=== PATIENT | male | born 1975 | race Caucasian/White ===

== ENCOUNTER 2022-06-09 19:40 | Emergency (ER) | payer MEDICAID, SELFPAY ==
[2022-06-09 19:50] VITALS: BP 127/89; PULSE 88; RESP 18; TEMP 36.8; O2SAT 97; BMI 29.0
--- NOTE | 2022-06-09 19:56 | DI.RAD.S_ITS ---
PROCEDURE: XR CHEST 1V INDICATIONS: chest pain TECHNIQUE: One view of the chest was acquired. COMPARISON: None. FINDINGS: Surgical changes and devices: None. Lungs and pleura: Lungs are clear. No pleural effusions or pneumothorax. Mediastinum: Mediastinal contours appear normal. Heart size is normal. Bones and chest wall: No suspicious bony lesions. Overlying soft tissues appear unremarkable. IMPRESSION: 1. No acute cardiopulmonary disease. Dictated by: Jeramy Mae M.D. on 06/09/2022 at 20:48 Approved by: Jeramy Mae M.D. on 06/09/2022 at 20:48
[2022-06-09 20:20] LABS: Add Manual Diff / Slide Review NO; Basophils Absolute Auto 100 /uL (0-100); Basophils Percent Auto 0.8 % (0-2); Eosinophils Absolute Auto 100 /uL (0-450); Eosinophils Percent Auto 1.4 % (2-4); Hematocrit 49.5 % (41-53); Hemoglobin 16.8 g/dL (13.5-17.5); Lymphocytes Absolute Auto 3000 /uL (1100-4500); Lymphocytes Percent Auto 29.6 % (25-40); Mean Corpuscular HGB Conc 33.9 % (30-36); Mean Corpuscular Hemoglobin 31.2 PG (26-34); Mean Corpuscular Volume 91.9 fL (80-100); Monocytes Absolute Auto 1000 /uL (0-900); Monocytes Percent Auto 9.3 % (3-14); Neutrophils Absolute Auto 6000 /uL (1500-7000); Neutrophils Percent Auto 58.9 % (50-75); Platelet Count 196 X10^3/uL (150-400); Red Blood Cell Count 5.38 X10^6/uL (4.5-5.9); Red Cell Distribution Width 13.3 % (11.6-14.8); White Blood Cell Count 10.3 X10^3/uL (4.5-11.0)
[2022-06-09 20:26] LABS: INR 1.1 (0.9-1.3); Prothrombin Time 12.2 SECONDS (10.1-12.7)
[2022-06-09 20:29] LABS: PTT Partial Thromboplastin Tim 31 SECONDS (26-36)
[2022-06-09 20:32] LABS: Alanine Aminotransferase 34 IU/L (<50); Alkaline Phosphatase 87 U/L (38-126); Aspartate Aminotransferase 35 IU/L (17-59); BUN Creatinine Ratio 13.6 (6-22); Bilirubin Total 0.6 mg/dL (0.2-1.3); Blood Urea Nitrogen 11 mg/dL (9-20); Carbon Dioxide 24 mmol/L (22-32); Chloride 105 mmol/L (98-107); Creatine Kinase 99 U/L (55-170); Estimated Glomerular Filt Rate > 60 mL/min (>60); Glucose 94 mg/dL (70-100); Lipase 106 U/L (23-300); Potassium 4.2 mmol/L (3.4-5.1); Sodium 140 mmol/L (137-145); Total Protein 7.9 g/dL (6.3-8.2)
[2022-06-09 20:42] LABS: Troponin I < 0.012 ng/mL (0.01-0.034)
[2022-06-09 21:36] VITALS: BP 148/85; PULSE 72; RESP 16; O2SAT 99
[2022-06-09 22:43] LABS: Troponin I < 0.012 ng/mL (0.01-0.034)
--- NOTE | 2022-06-10 01:39 | ED.CHESTPAIN ---
HPI - Chest Pain General Chief Complaint: Chest Pain Stated Complaint: chest pain all day, SOB Time Seen by Provider: 06/10/22 01:15 Source: patient Mode of arrival: Ambulatory Limitations: no limitations History of Present Illness HPI narrative: 46-year-old gentleman no significant medical history on no prescription medications but a strong family history for coronary disease comes in this evening complaining of central chest pain. He does do construction work and heavy labor and yesterday had strained his back a bit noticed that is pain was radiating up his back into his neck and today as he was getting ready for bed as he went to sit forward he noticed increasing substernal chest pain. His girlfriend requested the come to the emergency department for further evaluation. Notes that he has not been feeling shortness of breath, orthopnea, fevers, chills, palpitations, chest pain prior to this evening. It was not associated with nausea, diaphoresis. He is had no abdominal pain no lower extremity edema and no recent viral infections. Related Data Allergies Allergy/AdvReac Type Severity Reaction Status Date / Time No Known Drug Allergies Allergy Verified 06/09/22 21:41 Review of Systems Review of Systems Narrative: Remainder of complete review of systems is otherwise unremarkable except for that included in the HPI. Patient History Social History Smoking Status: Current every day smoker Smoking Status: Current every day smoker tobacco type: cigarettes Substance Use Type: does not use Exam Initial Vital Signs Initial Vital Signs: Vital Signs Temperature 98.3 F 06/09/22 19:50 Pulse Rate 88 06/09/22 19:50 Respiratory Rate 18 06/09/22 19:50 Blood Pressure 127/89 06/09/22 19:50 Pulse Oximetry 97 06/09/22 19:50 Oxygen Delivery Method 06/09/22 19:50 General: Healthy appearing, in no acute distress. Able to give a complete and coherent history. Well-nourished well-developed HEENT: Moist mucous membranes, normal sclera with reactive pupils, Neck: No JVD, supple Respiratory: Lungs are clear to auscultation, no wheezing no rales no rhonchi. Full and symmetrical air movement Chest: Reproducible pain with pressure along the costochondral margins Cardiac: Regular rate and rhythm no murmurs no bruits Abdomen: Soft, nontender, good bowel tones, no flank pain Skin: Warm and dry, no rashes Neurologic: Grossly neurologically intact with no obvious asymmetries or abnormalities Extremities: No trauma, well perfused Psych: Cooperative, appropriate insight and affect Course Orders Ordered: ED Orders 06/09/22 19:56 XR chest 1V Stat COVID19 -Nasal RAPID/Pre-Proc Stat EKG-12 Lead Stat 06/09/22 20:09 Complete Blood Count AUTO DIFF Stat Comprehensive Metabolic Panel Stat Lipase Stat Magnesium Stat Partial Thromboplastin Time Stat Prothrombin Time INR Stat Troponin & CK Cardiac Panel Stat 06/09/22 22:13 Troponin I Stat 06/09/22 22:15 EKG-12 Lead Stat Discontinued Medications Aspirin (Aspirin 81 Mg Chew Tab) 324 mg PO NOW ONE Stop: 06/09/22 19:57 Vital Signs Vital signs: Vital Signs - 8 hr 06/09/22 19:50 06/09/22 21:36 Temperature 98.3 F Pulse Rate 88 72 Respiratory Rate 18 16 Blood Pressure 127/89 148/85 H Pulse Oximetry 97 99 Oxygen Delivery Method Room Air Room Air MDM - Chest Pain Lab Data Result diagrams: 06/09/22 20:09 06/09/22 20:09 Labs: Lab Results 06/09/22 06/09/22 06/09/22 Range/Units 20:09 20:09 20:09 WBC 10.3 (4.5-11.0) X10^3/uL RBC 5.38 (4.5-5.9) X10^6/uL Hgb 16.8 (13.5-17.5) g/dL Hct 49.5 (41-53) % MCV 91.9 (80-100) fL MCH 31.2 (26-34) PG MCHC 33.9 (30-36) % RDW 13.3 (11.6-14.8) % Plt Count 196 (150-400) X10^3/uL Neut % (Auto) 58.9 (50-75) % Lymph % (Auto) 29.6 (25-40) % Daniels % (Auto) 9.3 (3-14) % Eos % (Auto) 1.4 L (2-4) % Baso % (Auto) 0.8 (0-2) % Neut # (Auto) 6000 (5108-7123) /uL Lymph # (Auto) 3000 (8178-3751) /uL Daniels # (Auto) 1000 H (0-900) /uL Eos # (Auto) 100 (0-450) /uL Baso # (Auto) 100 (0-100) /uL PT 12.2 (10.1-12.7) SECONDS INR 1.1 (0.9-1.3) APTT 31 (26-36) SECONDS Sodium 140 (137-145) mmol/L Potassium 4.2 (3.4-5.1) mmol/L Chloride 105 (98-107) mmol/L Carbon Dioxide 24 (22-32) mmol/L BUN 11 (9-20) mg/dL Creatinine 0.81 (0.66-1.25) mg/dL Estimated GFR > 60 (>60) mL/min BUN/Creatinine Ratio 13.6 (6-22) Glucose 94 (70-100) mg/dL Calcium 9.0 (8.4-10.2) mg/dL Magnesium 2.0 (1.6-2.3) mg/dL Total Bilirubin 0.6 (0.2-1.3) mg/dL AST 35 (17-59) IU/L ALT 34 (<50) IU/L Alkaline Phosphatase 87 (38-126) U/L Total Creatine Kinase 99 (55-170) U/L CK-MB (CK-2) TNP CK-MB (CK-2) Rel Index TNP Troponin I < 0.012 (0.01-0.034) ng/mL Total Protein 7.9 (6.3-8.2) g/dL Lipase 106 (23-300) U/L 06/09/22 Range/Units 22:13 WBC (4.5-11.0) X10^3/uL RBC (4.5-5.9) X10^6/uL Hgb (13.5-17.5) g/dL Hct (41-53) % MCV (80-100) fL MCH (26-34) PG MCHC (30-36) % RDW (11.6-14.8) % Plt Count (150-400) X10^3/uL Neut % (Auto) (50-75) % Lymph % (Auto) (25-40) % Daniels % (Auto) (3-14) % Eos % (Auto) (2-4) % Baso % (Auto) (0-2) % Neut # (Auto) (0135-2533) /uL Lymph # (Auto) (4821-3771) /uL Daniels # (Auto) (0-900) /uL Eos # (Auto) (0-450) /uL Baso # (Auto) (0-100) /uL PT (10.1-12.7) SECONDS INR (0.9-1.3) APTT (26-36) SECONDS Sodium (137-145) mmol/L Potassium (3.4-5.1) mmol/L Chloride (98-107) mmol/L Carbon Dioxide (22-32) mmol/L BUN (9-20) mg/dL Creatinine (0.66-1.25) mg/dL Estimated GFR (>60) mL/min BUN/Creatinine Ratio (6-22) Glucose (70-100) mg/dL Calcium (8.4-10.2) mg/dL Magnesium (1.6-2.3) mg/dL Total Bilirubin (0.2-1.3) mg/dL AST (17-59) IU/L ALT (<50) IU/L Alkaline Phosphatase (38-126) U/L Total Creatine Kinase (55-170) U/L CK-MB (CK-2) CK-MB (CK-2) Rel Index Troponin I < 0.012 (0.01-0.034) ng/mL Total Protein (6.3-8.2) g/dL Lipase (23-300) U/L ECG Data Interpretation: Sinus rhythm at a rate of 84 Normal intervals, normal axis No acute ischemic changes MDM Narrative Medical decision making narrative: CC: Chest pain starting this evening: New diagnosis uncertain prognosis with potential for significant morbidity and mortality Complicating co-morbidities: Active lifestyle and works doing construction Data collected from: patient, Differential considered: Acute coronary syndrome, pulmonary embolism, dissection, pneumothorax, pneumonia, musculoskeletal pain, gallbladder pain, gastric or esophageal etiology Exam documented above, pertinent findings include: Reproducible chest pain when pressing on his manubrium Lab Test results independently reviewed as above. Pertinent findings: CBC is unremarkable Chemistries are reassuring Troponin and repeat troponin are negative Independently reviewed EKG as above Imaging studies independently reviewed: Chest x-ray with no acute findings Treatments: IV Toradol Re-evaluations: Overall improvement in pain Discussion: 46-year-old gentleman with reproducible musculoskeletal pain and negative cardiac workup. Heart score is 0. There is no indication for further workup or hospitalization. Recommended ibuprofen and Tylenol for pain control. Questions are answered Disposition: see below, along with detailed discharge instructions that have been reviewed with patient as well as indications for ED re-evaluation and additional outpatient follow up Discharge Plan Departure Patient Disposition: Home Clinical Impression: Musculoskeletal chest pain Instructions: DI for Atypical Chest Pain, DI for Musculoskeletal Pain Activity Restrictions/Additional Instructions: Thank you for coming in today Your blood work was very reassuring as was your chest x-ray. With your description of your pain and reproducible pain on physical exam, I do believe that you are correct that this is musculoskeletal pain causing the chest discomfort. I am finding no evidence of heart attack, pneumonia, collapsed lung, blood clot in your lung or other life-threatening explanation tonight. Using 400 mg of ibuprofen (2 [id number] pills) and 1 Tylenol every 6 hours can be very helpful in controlling pain. If you find that you are getting worse or develop any new symptoms, please feel free to return to the emergency department for further evaluation. Stand Alone Forms: Patient Portal/API
[2022-06-10] MEDS: KETOROLAC 30 MG/ML VIAL 15 MG IV (01:43)
[2022-06-10 01:52] VITALS: BP 130/86; PULSE 75; RESP 18; O2SAT 96
[2022-06-13 15:32] LABS: Albumin 4.4 g/dL (3.5-5.0); Albumin Globulin Ratio 1.3 (1.0-2.8); Globulin 3.5 g/dL (1.7-4.1); HEMOLYSIS 42 (0-50)
== END 2022-06-10 01:53 | disposition home or self-care (01) ==
PROVIDERS: Emergency Provider Emergency Medicine
DX: R07.89 Other chest pain (principal)
CPT/HCPCS: 36415; 71045; 80053; 82550; 83690; 83735; 84484; 85025; 85610; 85730; 93005; 96374; 99283; 99284; J1885